=== PATIENT | female | born 1985 | race Caucasian/White ===

== ENCOUNTER 2024-06-27 11:20 | Emergency (ER) | payer OTHER ==
--- OUTSIDE RECORDS SUMMARY | 2024-06-27 11:24 | XMS REPORT | Continuity of Care Document ---
Author Name Unknown Address [address] [facility] [address] [place] [address] [facility] Address [address] [facility] 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 Name Role Phone Bruno Salas Primary Care Physi urszula MADISON RUIZ Attending Clinician UnavailRodrick Og Attending Clinician Lonny gross Doctor Unassigned, [place] Attending Clinician U Madison Quintanilla MD Attending Clinician [phone] Only, Adc Test Attending Clinician Unavailable Reyna Paez Attending Clinician [phone] CAROL MONGE Attending Clinician Unavailable Jim Deluna MD Attending Clinician [phone] JIM DELUNA Attending Clinician Unavailable MADISON RUIZ Admitting Clinician UnavailRodrick Og Admitting Clinician BRUNO Mariee Admitting Clinician Unavailable Madison Ruiz MD Admitting Clinician [phone] Payers Payer Name Policy Type Policy Number Effective Date Expirati on Date Source [employer] CHOICE POS II [id number] 2018 00:00:00 Problems Condition Name Condition Details Condition Category Status Onset Date Resolution Date Last Treatment Date Treating Clinician Comments Source Abnormal mammogram Abnormal mammogram Disease Active 09-21 00:00: 00 Overview: Formattin g of this note might be different from the original. 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 Last Assessmen t & Plan: Pt to be referred to neurology for evaluatio n of MRI results, pt given patient education material discussin g diagnosis , all questions answered. Pt to RTC as needed. [facility] Allergies, Adverse Reactions, Alerts Allergy Name Allergy Type Status Severity Reaction(s) Onset Date Inactive Date Treating Clinician Comments Source No Known Drug Intolera nces DA Active U NONE 08-22 00:00: 00 [facility] NO KNOWN ALLERGIE S Drug Class Active [facility] Social History Social Habit Start Date Stop Date Quantity Comments Source [facility] Exposure to SARS-CoV-2 (event) 2020-09-19 00:00:00 2020-10-19 13:48:00 Not sure [facility] History of Social function 2020-10-05 00:00:00 2020-10-05 00:00:00 [facility] Tobacco use and exposure 2020-07-19 00:00:00 2020-07-19 00:00:00 Smokeless tobacco non-user [facility] Alcohol intake 2020-07-19 00:00:00 2020-07-19 00:00:00 Current drinker of alcohol (finding) [facility] Sex Assigned At 1985 00:00:00 1985 00:00:00 [facility] Smoking Status Start Date Stop Date Source Unknown if ever smoked [facility] Never smoked tobacco [facility] Medications Ordered Medication Name Filled Medication Name Start Date Stop Date Current Medication? Ordering Clinician Indication Dosage Frequency Signature (SIG) Comments Components Source MULTIVITAMI N ORAL 10-05 17:39: 08 Yes Take by mouth. [facility] Lactobacill us acidophilus (PROBIOTIC ORAL) 10-05 17:39: 08 Yes Take by mouth. [facility] ergocalcife rol, vitamin D2, (VITAMIN D ORAL) 10-05 17:39: 08 Yes Take by mouth. [facility] ZINC ORAL 10-05 17:39: 08 Yes Take by mouth. [facility] acetaminoph en (TYLENOL) tablet 650 mg 10-05 16:28: 55 Yes 650mg 650 mg, Oral, PRN, 1 dose, Starting 10/05/20 at 1128, Until Discontinu ed, Routine, Pain (scale 1-3), DSU Recovery [facility] traMADoL (ULTRAM) tablet 50 mg 10-05 16:28: 55 10-05 19:39 :10 No 50mg 50 mg, Oral, PRN, 1 dose, Starting 10/05/20 at 1128, Until 10/05/20 at 1439, Routine, Pain (scale 7-10), DSU Recovery [facility] ondansetron (ZOFRAN (PF)) injection 4 mg 10-05 16:28: 45 Yes 4mg 4 mg, Slow IV Push, PRN, 1 dose, Starting 10/05/20 at 1128, Until Discontinu ed, Routine, Nausea and Vomiting (N/V), PACU [facility] FENTanyl PF (SUBLIMAZE (PF)) injection 25 mcg 10-05 16:28: 45 10-05 19:39 :10 No 25ug 25 mcg, Slow IV Push, Q5MIN PRN, 4 doses, Starting 10/05/20 at 1128, Until 10/05/20 at 1439, Routine, Pain (scale 7-10), PACU [facility] bupivacaine (preserv free) 0.5% (SENSORCAIN E MPF) 0.5 % (5 mg/mL) 30 mL, NaCl 0.9% (NS) 30 mL 10-05 15:50: 00 Yes PRN, Starting Sun10/05/20 at 1050, Intra-op [facility] lactated ringers IV infusion 1,000 mL 10-05 13:15: 00 10-05 13:14 :00 No 1000mL at 42 mL/hr, 1,000 mL, IV Infusion, ONCE, 1 dose, Sun10/05/20 at 0815, Routine, DSU Pre-op [facility] MULTIVITAMI N ORAL 10-05 12:39: 08 Yes Take by mouth. [facility] traMADoL 50 mg tablet 10-05 00:00: 00 Yes [id number] 50mg Take 1 tablet by mouth every 6 (six) hours as needed for Pain (scale 4-6) or Pain (scale 7-10) for up to 7 doses. Indication s: acute pain [facility] MULTIVITAMI N ORAL 08-17 19:23: 30 Yes Take by mouth. [facility] Lactobacill us acidophilus (PROBIOTIC ORAL) 08-17 19:23: 30 Yes Take by mouth. [facility] ergocalcife rol, vitamin D2, (VITAMIN D ORAL) 08-17 19:23: 30 Yes Take by mouth. [facility] ZINC ORAL 08-17 19:23: 30 Yes Take by mouth. [facility] butalbital- acetaminoph en-caff 50-325-40 mg tablet 08-11 00:00: 00 Yes 1{tbl} Take 1-2 tablets by mouth. [facility] gadobenate dimeglumine (MULTIHANCE -15 mL) injection 0.2 mL/kg 08-03 18:45: 00 08-03 18:32 :00 No [id number] .2mL/kg 0.2 mL/kg, Intravenou s, ONCE, 1 dose, Sun08/03/20 at 1345, Routine [facility] ketoconazol e 2 % shampoo 07-22 00:00: 00 Yes SHAMPOO DAILY, LEAVE ON FOR 5-10 MINUTES, THEN RINSE. [facility] No known medications No Un jos[facility] No known medications No [facility] j[facility] No known medications No Un jos[facility] it[facility] No known medications No Un josé it[facility] Vital Signs Vital Name Observation Time Observation Value Comments S shanon Systolic blood pressure 2020-10-05 17:25:00 115 mm[Hg] [facility] Diastolic blood pressure 2020-10-05 17:25:00 72 mm[Hg] [facility] Heart rate 2020-10-05 17:25:00 84 /min Unive [facility] Respiratory rate 2020-10-05 17:25:00 18 /min [facility] Oxygen saturation in Arterial blood by Pulse oximetry 2020-10-05 17:25:00 100 /min [facility] Body temperature 2020-10-05 13:13:00 36.94 Aisha [facility] Body height 2020-09-24 18:59:00 157.5 cm [facility] Body weight 2020-09-24 18:59:00 58.9 kg [facility] BMI 2020-09-24 18:59:00 23.74 kg/m2 [facility] Systolic blood pressure 2020-10-05 16:20:00 106 mm[Hg] [facility] Diastolic blood pressure 2020-10-05 16:20:00 69 mm[Hg] [facility] Heart rate 2020-10-05 16:20:00 97 /min Unive [facility] Respiratory rate 2020-10-05 16:20:00 18 /min [facility] Oxygen saturation in Arterial blood by Pulse oximetry 2020-10-05 16:20:00 100 /min [facility] Body temperature 2020-10-05 13:13:00 36.94 Aisha [facility] Body height 2020-09-24 18:59:00 157.5 cm [facility] Body weight 2020-09-24 18:59:00 58.9 kg [facility] BMI 2020-09-24 18:59:00 23.74 kg/m2 [facility] Procedures Procedure Date / Time Performed Performing Clinician Source EXTERNAL PROVIDER RECORDS 2021-08-08 05:01:00 Doctor Unassigned, [place] [facility] FL TIME OR (NON-REPORTABLE) 2020-10-05 18:41:06 Madison Ruiz [facility] EXCISION LESION BREAST 2020-10-05 13:53:00 Charan Ruiz [facility] POCT TEST 2020-10-05 13:05:00 Abhinav Velásquez [facility] POCT TEST 2020-10-05 13:05:00 Abhinav Velásquez [facility] DAY SURGERY - ADC 2020-10-05 05:01:00 Doctor Megan ssigned, [place] [facility] ASSIGNMENT OF BENEFITS 2020-10-04 17:31:11 Docto r Unassigned, [place] [facility] DISCLOSURE AND CONSENT, MEDICAL AND SURGICAL PROCEDURES 2020-09-21 05:01:00 Doctor Unassigned, [place] [facility] DISCLOSURE AND CONSENT, MEDICAL AND SURGICAL PROCEDURES 2020-09-21 05:01:00 Doctor Unassigned, [place] [facility] MR BREAST BILATERAL W WO CONTRAST 2020-08-03 18:31:[address] [facility] BI ULTRASOUND BREAST COMPLETE BILATERAL 2020-07-27 17:20:[address] [facility] BI DIAGNOSTIC TOMOSYNTHESIS BILATERAL 2020-07-27 16:45:00 Mikie [facility] REFERRAL- REQUEST/RESPONSE 2020-07-13 05:01:00 Doctor Unassigned, [place] [facility] Encounters Start Date/Time End Date/Time Encounter Type Admission Type Attending Clinicians Care Facility Care Department Encounter ID Source 2021-02-27 21:24:30 Outpatient MADISON ASHLEY [facility] MIGDALIA [id number] [facility] 2022-10-09 13:27:00 2022-10-09 13:27:00 Outpatient Rodrick Roper [facility] [id number] [facility] 2022-04-17 10:22:00 2022-04-17 10:22:00 Outpatient Rodrick Roper [facility] RADI [id number] [facility] 2021-08-08 00:00:00 2021-08-08 00:00:00 Orders Only Doctor Unassigned, [place] [facility] 1.2840.114 350.1.13.10 4.2.7.2.686 [id number] [facility] 2020-10-19 13:45:00 2020-10-19 13:45:00 Outpatient R MADISON RUIZ [facility] [id number] [facility] 2020-10-05 07:57:00 2020-10-05 12:32:00 Hospital Encounter Madison Ruiz [facility] 1.840.114 350.1.13.10 4.2.7.2.686 [id number] [facility] 2020-10-05 09:25:00 2020-10-05 11:20:00 Surgery Madison Ruiz [facility] 1.2840.114 350.1.13.10 4.2.7.2.686 [id number] [facility] 2020-10-05 00:00:00 2020-10-05 00:00:00 Orders Only Doctor Unassigned, [place] [facility] 1.2840.114 350.1.13.10 4.2.7.2.686 [id number] [facility] 2020-10-04 12:30:23 2020-10-04 12:45:23 Laboratory Only Only, Adc Test Madison Ruiz [facility] 1.2840.114 350.1.13.10 4.2.7.2.686 [id number] [facility] 2020-10-04 12:15:00 2020-10-04 12:15:00 Outpatient MADISON ASHLEY [facility] [id number] [facility] 2020-10-04 00:00:00 2020-10-04 00:00:00 Orders Only Doctor Unassigned, [place] [facility] 1.2840.114 350.1.13.10 4.2.7.2.686 [id number] [facility] 2020-09-24 09:15:00 2020-09-24 09:15:00 [id number] 2020-09-23 00:00:00 2020-09-23 00:00:00 Telephone Reyna Conway [facility] 1..840.114 350.1.13.10 4.2.7.2.686 [id number] [facility] 2020-09-21 13:15:00 2020-09-21 13:15:00 [facility] [id number] [facility] 2020-08-24 16:00:00 2020-08-24 16:00:00 [facility] [id number] [facility] 2020-08-17 14:15:00 2020-08-17 14:15:00 [facility] [id number] [facility] 2020-08-13 13:20:00 2020-08-13 13:20:00 Outpatient CAROL PRITCHETT [facility] [id number] [facility] 2020-08-09 00:00:00 2020-08-09 00:00:00 Patient Secure Msg Doctor Unassigned, [place] [facility] 1.2.840.114 350.1.13.10 4.2.7.2.686 [id number] [facility] 2020-08-03 10:15:00 2020-08-03 23:59:00 Hospital Encounter Jim Deluna [facility] 1.2.840.114 350.1.13.10 4.2.7.2.686 [id number] [facility] 2020-08-03 00:00:00 2020-08-03 00:00:00 Outpatient R JIM DELUNA [facility] [id number] [facility] 2020-07-27 10:32:50 2020-07-27 23:59:00 Outpatient R JIM DELUNA [facility] [id number] [facility] 2020-07-27 10:32:50 2020-07-27 23:59:00 Hospital Encounter Jim Deluna [facility] 1.2840.114 350.1.13.10 4.2.7.2.686 [id number] [facility] 2020-07-27 10:31:53 2020-07-27 10:31:53 Hospital Encounter Mikie Jim [facility] 1.2840.114 350.1.13.10 4.2.7.2.686 [id number] [facility] 2020-07-19 14:45:00 2020-07-19 14:45:00 Outpatient R JIM DELUNA [facility] [id number] [facility] 2020-07-19 00:00:00 2020-07-19 00:00:00 Letter (Out) Doctor Unassigned, [place] [facility] 1.2840.114 350.1.13.10 4.2.7.2.686 [id number] [facility] 2020-07-13 00:00:00 2020-07-13 00:00:00 Orders Only Doctor Unassigned, [place] [facility] 1.2840.114 350.1.13.10 4.2.7.2.686 [id number] [facility] Results Test Description Test Time Test Comments Results Resul t Comments Source - DUP AB/PEL/SC COMP 2022-03-30 9 12:00:00 [facility]: GIULIANO CONLEY : 1985 Sex: F Name: GIULIANO CONLEY [facility] : 1985 Age/S: 36 / F [address] Unit #: [id number] Loc: [place] [address] Phys: Rodrick Jiménez MD Acct: [id number] Dis Date: Status: REG CLI PHONE #: [phone] Exam Date: 04/17/2022 1127 FAX #: Reason: OVARIAN MASS EXAMS: CPT: [id number] DUP AB/PEL/SC COMP 56377 PELVIC ULTRASOUND CLINICAL HISTORY: OVARIAN MASS RIGHT COMPARISON: Pelvic ultrasound dated March 20, 2011 TECHNIQUE: Transvaginal and transabdominal imaging of the pelvis was performed utilizing grayscale, color Doppler, and spectral waveform analysis. Uterus: The retroverted uterus measures 9.3 x 4.5 x 6.3 cm in size. No uterine fibroid is identified. Endometrial stripe: The endometrial stripe measures 1.1 cm in thickness. No endometrial fluid is seen. Right ovary: The right ovary measures 4.7 x 2.2 x 2.9 cm. Spectral and color Doppler of the right ovary demonstrates normal arterial and venous blood flow. Several small ovarian follicles are noted which measure less than 1 cm in size. Left ovary: The left ovary measures 2.8 x 1.5 x 2.2 cm. Spectral and color Doppler of the left ovary demonstrates normal arterial and venous blood flow. Several small ovarian follicles are present which measure less than 1 cm in size. An additional simple 1.8 cm paraovarian cyst is also seen. Free fluid: Trace free fluid is noted in the pelvic cul-de-sac. IMPRESSION: 1. Small bilateral ovarian follicles and a small left paraovarian cyst. 2. No suspicious ovarian mass is detected. 3. Trace pelvic free fluid, likely physiologic. LOCATION: R16 at 1200 Reported and signed by: Lucho Navas M.D. PAGE 1 Signed Report (CONTINUED) Name: GIULIANO CONLEY [facility] : 1985 Age/S: 36 / F [address] Unit #: [id number] Loc: [place] [address] Phys: Rodrick Jiménez MD Acct: [id number] Dis Date: Status: REG CLI PHONE #: [phone] Exam Date: 04/17/2022 1127 FAX #: Reason: OVARIAN MASS EXAMS: CPT: [id number] DUP AB/PEL/SC COMP 91480 (Continued) CC: Rodrick Mckinnon MD Technologist: Marissa Clarke [facility] Date/Time: 04/17/2022 (1200) [email or web address] PAGE 2 Signed Report Name: YAELGIULIANO DENNIS DIVINE [place] : 1985 Age/S: 36 / F [address] Unit #: [id number] Loc: [place] [address] Phys: Rodrick Jiménez MD Acct: [id number] Dis Date: Status: REG CLI PHONE #: [phone] Exam Date: 04/17/2022 1127 FAX #: Reason: OVARIAN MASS EXAMS: CPT: [id number] DUP AB/PEL/SC COMP 77020 (Continued) Orig Print D/T: S: 04/17/2022 (1203) Probe: PAGE 3 Signed Report - US TRANSVAGINAL NON OB 2022-03-30 9 12:00:00 [facility] AZLEName: GIULIANO CONLEY : 1985 Sex: F Name: GIULIANO CONLEY [facility] : 1985 Age/S: 36 / F [address] [place] Unit #: [id number] Loc: [place] [address] Phys: Rodrick Jiménez MD Acct: [id number] Dis Date: Status: REG CLI PHONE #: [phone] Exam Date: 04/17/2022 1127 FAX #: Reason: OVARIAN MASS RIGHT EXAMS: CPT: [id number] [place] [address] PELVIC ULTRASOUND CLINICAL HISTORY: OVARIAN MASS RIGHT COMPARISON: Pelvic ultrasound dated March 20, 2011 TECHNIQUE: Transvaginal and transabdominal imaging of the pelvis was performed utilizing grayscale, color Doppler, and spectral waveform analysis. Uterus: The retroverted uterus measures 9.3 x 4.5 x 6.3 cm in size. No uterine fibroid is identified. Endometrial stripe: The endometrial stripe measures 1.1 cm in thickness. No endometrial fluid is seen. Right ovary: The right ovary measures 4.7 x 2.2 x 2.9 cm. Spectral and color Doppler of the right ovary demonstrates normal arterial and venous blood flow. Several small ovarian follicles are noted which measure less than 1 cm in size. Left ovary: The left ovary measures 2.8 x 1.5 x 2.2 cm. Spectral and color Doppler of the left ovary demonstrates normal arterial and venous blood flow. Several small ovarian follicles are present which measure less than 1 cm in size. An additional simple 1.8 cm paraovarian cyst is also seen. Free fluid: Trace free fluid is noted in the pelvic cul-de-sac. IMPRESSION: 1. Small bilateral ovarian follicles and a small left paraovarian cyst. 2. No suspicious ovarian mass is detected. 3. Trace pelvic free fluid, likely physiologic. LOCATION: R16 at 1200 Reported and signed by: Lucho Navas M.D. PAGE 1 Signed Report (CONTINUED) Name: CHRISS CONLEYREY JEANNIE [facility] : 1985 Age/S: 36 / F [address] Unit #: [id number] Loc: [place] [address] Phys: Rodrick Jiménez MD Acct: [id number] Dis Date: Status: REG CLI PHONE #: [phone] Exam Date: 04/17/2022 1127 FAX #: Reason: OVARIAN MASS RIGHT EXAMS: CPT: [id number] [place] [address] (Continued) CC: Rodrick Mckinnon MD Technologist: Marissa Clarke [facility] Date/Time: 04/17/2022 (1200) [email or web address] PAGE 2 Signed Report Name: GIULIANO CONLEY [facility] : 1985 Age/S: 36 / F [address] Unit #: [id number] Loc: [place] [address] Phys: Rodrick Jiménez MD Acct: [id number] Dis Date: Status: REG CLI PHONE #: [phone] Exam Date: 04/17/2022 1127 FAX #: Reason: OVARIAN MASS RIGHT EXAMS: CPT: [id number] [place] [address] (Continued) Orig Print D/T: S: 04/17/2022 (1203) Probe: [id number] PAGE 3 Signed Report - US PELVIC COMPLETE 2022-03-30 9 12:00:00 [facility] AZLEName: CHRISS CONLEYREY JEANNIE : 1985 Sex: F Name: GIULIANO CONLEY [place] : 1985 Age/S: 36 / F [address] [address] Unit #: [id number] Loc: [place] [address] Phys: Rodrick Jiménez MD Acct: [id number] Dis Date: Status: REG CLI PHONE #: [phone] Exam Date: 04/17/2022 1126 FAX #: Reason: OVARIAS MASS RIGHT EXAMS: CPT: [id number] US PELVIC COMPLETE 98741 PELVIC ULTRASOUND CLINICAL HISTORY: OVARIAN MASS RIGHT COMPARISON: Pelvic ultrasound dated March 20, 2011 TECHNIQUE: Transvaginal and transabdominal imaging of the pelvis was performed utilizing grayscale, color Doppler, and spectral waveform analysis. Uterus: The retroverted uterus measures 9.3 x 4.5 x 6.3 cm in size. No uterine fibroid is identified. Endometrial stripe: The endometrial stripe measures 1.1 cm in thickness. No endometrial fluid is seen. Right ovary: The right ovary measures 4.7 x 2.2 x 2.9 cm. Spectral and color Doppler of the right ovary demonstrates normal arterial and venous blood flow. Several small ovarian follicles are noted which measure less than 1 cm in size. Left ovary: The left ovary measures 2.8 x 1.5 x 2.2 cm. Spectral and color Doppler of the left ovary demonstrates normal arterial and venous blood flow. Several small ovarian follicles are present which measure less than 1 cm in size. An additional simple 1.8 cm paraovarian cyst is also seen. Free fluid: Trace free fluid is noted in the pelvic cul-de-sac. IMPRESSION: 1. Small bilateral ovarian follicles and a small left paraovarian cyst. 2. No suspicious ovarian mass is detected. 3. Trace pelvic free fluid, likely physiologic. LOCATION: R16 at 1200 Reported and signed by: Lucho Navas M.D. PAGE 1 Signed Report (CONTINUED) Name: GIULIANO CONLEYELLE [facility] [place] : 1985 Age/S: 36 / F [address] [address] [place] Unit #: [id number] Loc: [place] [address] Phys: Rodrick Jiménez MD Acct: [id number] Dis Date: Status: REG CLI PHONE #: [phone] Exam Date: 04/17/2022 1126 FAX #: Reason: OVARIAS MASS RIGHT EXAMS: CPT: [id number] US PELVIC COMPLETE 48625 (Continued) CC: Rodrick Mckinnon MD Technologist: Marissa Clarke [facility] Date/Time: 04/17/2022 (1200) [email or web address] PAGE 2 Signed Report Name: GIULIANO CONLEY [place] : 1985 Age/S: 36 / F [address] [address] Unit #: [id number] Loc: [place] [address] Phys: Rodrick Jiménez MD Acct: [id number] Dis Date: Status: REG CLI PHONE #: [phone] Exam Date: 04/17/2022 1126 FAX #: Reason: OVARIAS MASS RIGHT EXAMS: CPT: [id number] US PELVIC COMPLETE 77310 (Continued) Orig Print D/T: S: 04/17/2022 (1203) Probe: PAGE 3 Signed Report [place] TIME OR (NON-REPORTABLE) 8 18:41:11 These images do not require a Radiology diagnostic report. [id number] 13:05:00* Test Item Value Reference Range Interpretation Comme nts POCT PREG (test code = 1605) Negative On board controls acceptable with C Line (test code = 3574) Yes POCT PREG LOT # (test code = 3575) [id number] POCT PREG TEST DATE ( test code = 3576) [facility]02-27 [facility] [id number] 21:38:30Examination:MR BREAST BILATERAL W WO CONTRAST History:Patient is 34 year old and is seen for: ?Left: There is a 5 mm focal asymmetry in the retroareolar left breast; best seen on LCC image 28 of 55 and LSMLO image 13 of 46. Mild ductal ectasia is noted in the subareolar left breast, however, no intraductal mass is appreciated. The patient reports a history of spontaneous unilateral clear/orange nipple discharge, . ? Comparisons: 07/27/2020 BI DIAGNOSTIC TOMOSYNTHESIS BILATERAL and 07/27/2020 BIULTRASOUND BREAST COMPLETE BILATERAL Technique: Axial 3-D images with and without fat saturation; axial T2 fat saturated images; dynamic axial 3-D T1 images with fat saturation post gadolinium and sagittal 3-D T1 fat saturated images post gadolinium of both left and right breasts. Dynamic enhancement images were reviewed, and time enhancement curves were generated utilizing [employer] ([employer]) software. The MRI kinetic data including peak enhancement values, wash out percentages, and wash out curves were processed by physician at independent [employer] workstation. The post processing is medically necessary to comprehensively evaluate the MRI to diagnose breast cancer. Findings:The breasts have heterogeneous fibroglandular tissue. The background parenchymal enhancement is moderate and symmetric. RightThere is no evidence of suspicious masses, abnormal enhancement, or other abnormal findings in the right breast. LeftCorresponding to focal asymmetry seen on mammogram is normal breast parenchyma. There is no evidence of suspicious masses, abnormal enhancement, or other abnormal findings in the left breast. There is no lymphadenopathy. Impression:There is no MR evidence of malignancy. The patient reports a history of spontaneous unilateral clear/orange nipple discharge, so surgical consultation for a detail clinical exam is recommended for further evaluation. Recommendation:Clinical follow-up is also recommended and further management of clinical findings should be based on the results of clinical evaluation.Follow-up at age 40 or based on current ACR guidelines - Bilateral BI-RADS Category: Left 2 - BenignRight 1 - Negative I, Alexandria Mojica MD ?personally reviewed the study and agree with the resident's/fellow's report.[facility] ULTRASOUND BREAST COMPLETE [id number] 19:34:33Examination:BI DIAGNOSTIC TOMOSYNTHESIS BILATERALBI ULTRASOUND BREAST COMPLETE BILATERAL History:Patient is 34 year old and is seen for: ?[place] discharge and pain, possible mass palpated or fullness. Computer-aided detection (CAD) utilized. Comparisons : None available Findings:The breasts are heterogeneously dense, which may obscure small masses. LeftBI DIAGNOSTIC TOMOSYNTHESIS BILATERALThere is a 5 mm focal asymmetry seen in the retroareolar region of the left breast. This is best seen on LCC image 28 of 55 and LSMLO image 13 of 46. BI ULTRASOUND BREAST COMPLETE BILATERALSurvey ultrasound of the left breast and axilla was performed. Mild ductal ectasia is noted in the left subareolar breast, however, no intraductal mass is appreciated. Survey ultrasound of the left breast and axilla is unremarkable. RightBI DIAGNOSTIC TOMOSYNTHESIS BILATERALThere is no evidence of suspicious masses, calcifications, or other abnormal findings in the right breast. BI ULTRASOUND BREAST COMPLETE BILATERALSurvey ultrasound of the right breast and axilla was performed. Subareolar ultrasound of the right breast is unremarkable. A lobule of normal-appearing breast tissue is noted in the upper outer quadrant on real-time imaging. Survey ultrasound of the right breast and axilla is unremarkable. Impression: Left: There is a 5 mm focal asymmetry in the retroareolar left breast; best seen on LCC image 28 of 55 and LSMLO image 13 of 46. Mild ductal ectasia is noted in the subareolar left breast, however, no intraductal mass is appreciated. The patient reports a history of spontaneous unilateral clear/orange nipple discharge, so bilateral contrasted breast MRI is recommended (this MRI should be performed on day 7-10 of the menstrual cycle) to exclude an underlying abnormality. BI-RADS 0. Need additional imaging. Right: There is no evidence of malignancy. These findings and recommendations were d iscussed in detail with the patient at the time of this exam. Recommendation:MRI - BilateralAnnual mammographic follow-up - Right BI-RADS Category: Left: 0 - Incomplete: Needs Additional Imaging EvaluationRight: 1 - NegativeOverall: 0 - Incomplete: Needs Additional Imaging EvaluationPalestine Regional Medical CenterBI DIAGNOSTIC TOMOSYNTHESIS [id number] 19:34:28Examination:BI DIAGNOSTIC TOMOSYNTHESIS BILATERALBI ULTRASOUND BREAST COMPLETE BILATERAL History:Patient is 34 year old and is seen for: ?[place] discharge and pain, possible mass palpated or fullness. Computer-aided detection (CAD) utilized. Comparisons : None available Findings:The breasts are heterogeneously dense, which may obscure small masses. LeftBI DIAGNOSTIC TOMOSYNTHESIS BILATERALThere is a 5 mm focal asymmetry seen in the retroareolar region of the left breast. This is best seen on LCC image 28 of 55 and LSMLO image 13 of 46. BI ULTRASOUND BREAST COMPLETE BILATERALSurvey ultrasound of the left breast and axilla was performed. Mild ductal ectasia is noted in the left subareolar breast, however, no intraductal mass is appreciated. Survey ultrasound of the left breast and axilla isunremarkable. RightBI DIAGNOSTIC TOMOSYNTHESIS BILATERALThere is no evidence of suspicious masses, calcifications, or other abnormal findings in the right breast. BI ULTRASOUND BREAST COMPLETE BILATERALSurvey ultrasound of the right breast and axilla was performed. Subareolar ultrasound of the right breast is unremarkable. A lobule of normal-appearing breast tissue is noted in the upper outer quadrant on real-time imaging. Survey ultrasound of the right breast and axilla is unremarkable. Impression: Left: There is a 5 mm focal asymmetry in the retroareolar left breast; best seen on LCC image 28 of 55 and LSMLO image 13 of 46. Mild ductal ectasia is noted in the subareolar left breast, however, no intraductal mass is appreciated. The patient reports a history of spontaneous unilateral clear/orange nipple discharge, so bilateral contrasted breast MRI is recommended (this MRI should be performed on day 7-10 of the menstrual cycle) to exclude an underlying abnormality. BI-RADS 0. Need additional imaging. Right: There is no evidence of malignancy. These findings and recommendations were d iscussed in detail with the patient at the time of this exam. Recommendation:MRI - BilateralAnnual mammographic follow-up - Right BI-RADS Category: Left: 0 - Incomplete: Needs Additional Imaging EvaluationRight: 1 - NegativeOverall: 0 - Incomplete: Needs Additional Imaging EvaluationUnBaylor Scott [facility] [place]
[2024-06-27] MEDS ORDERED: ASPIRIN 81 MG CHEWABLE TABLET ONE (11:37)
[2024-06-27] MEDS ORDERED: FAMOTIDINE 20 MG/2 ML VIAL IV ONE (11:37)
[2024-06-27 11:48] LABS: Absolute Basophils 0.1 K/uL (0-0.5); Absolute Eosinophils 0.1 K/uL (0-0.5); Absolute Lymphocytes (CBC) 2.2 K/uL (0.7-4.9); Absolute Monocytes 0.5 K/uL (0.1-1.3); Absolute Neutrophil 2.6 K/uL (1.8-8.0); Basophils % 1.2 % (0-1.3); Eosinophils % 1.8 % (0-4.4); Hematocrit 38.9 % (36.0-45.0); Hemoglobin 13.5 g/dL (12.0-15.0); Lymphocytes % 40.6 % (15.3-44.8); MCH 31.9 pg (27.0-35.0); MCHC 34.8 g/dL (32.0-36.0); MCV 91.7 fL (80-100); MPV 7.8 fL (7.6-11.3); Monocytes % 9.3 % (3.3-12.3); Neutrophils % 47.1 % (41.7-73.7); Platelets 377 thou/uL (152-406); RBC Red Blood Cell Count 4.24 M/uL (3.86-4.86); Red Cell Distribution Width 12.7 % (12.1-15.2)
--- NOTE | 2024-06-27 11:50 | RAD REPORT ---
Procedure: Chest Single View HISTORY: Chest pain COMPARISON: 2016 FINDINGS: The lungs appear clear of acute infiltrate. No significant pleural effusion noted. The heart is normal size. IMPRESSION: No acute abnormality is displayed.
[2024-06-27 11:55] LABS: PT Prothrombin Time 12.4 SECONDS (10.0-13.0); Protime INR 1.09
[2024-06-27 12:07] LABS: Specific Gravity 1.006 (1.005-1.030); Sqamous Epithelial <5 /HPF (None Seen); Urine Bacteria None Seen /HPF (<20); Urine Bilirubin NEGATIVE (Negative); Urine Blood 3+ (Negative); Urine Clarity Clear (Clear); Urine Color Colorless (Yellow); Urine Culture Reflex Order NOT NEEDED; Urine Glucose NEGATIVE (Negative); Urine Ketones TRACE (Negative); Urine Microscopic Reflex YN ORDER UMIC; Urine Nitrite NEGATIVE (Negative); Urine Protein NEGATIVE (Negative); Urine RBC <5 /HPF (None Seen); Urine Urobilinogen Normal (Normal); Urine WBC <5 /HPF (<5); Urine pH 5.5 (5.0-7.0)
[2024-06-27 12:14] LABS: ALT/SGPT 26 U/L (13-56); AST/SGOT 20 U/L (15-37); Albumin 3.7 g/dL (3.4-5.0); Albumin/Globulin Ratio 1.1 (1.1-1.8); Alkaline Phosphatase 63 U/L (45-117); Anion Gap 9.9 mEq/L (5.0-15.0); BUN Blood Urea Nitrogen 15 mg/dL (7-18); Bicarbonate 26 mEq/L (21-32); Bilirubin Total 0.4 mg/dL (0.2-1.0); Globulin 3.4 g/dL (2.3-3.5); Glomerular Filtration Rate 93 ml/min (=/>90); Glucose Level 97 mg/dL (74-106); Lipase 44 U/L (13-75); Magnesium 2.4 mg/dL (1.6-2.4); NT PRO-BNP 34 pg/mL (<125); Potassium 3.9 mEq/L (3.5-5.1); Protein, Total 7.1 g/dL (6.4-8.2); Sodium Level 135 mEq/L (136-145)
[2024-06-27 12:18] LABS: Bilirubin Direct < 0.2 mg/dL (0-0.2); Bilirubin Indirect, Calculated 0.2 mg/dL (0.2-0.8); Troponin High Sensitivity < 3.0 pg/mL (<58.9)
--- NOTE | 2024-06-27 13:45 | ER ---
Nurse's Notes [facility] Name: Kisha Kinsey Age: 38 yrs Sex: Female : 1985 Arrival Date: 06/27/2024 Time: 11:20 Bed 3 Private MD: Diagnosis: Syncope Near;Palpitations;Chest pain, unspecified Presentation: 06/27 11:34 Chief complaint: Patient states: Was walking and started having an episode of dizziness cm10 and chest pain. pt states that the pain is to the left side of her chest and radiates down left arm. pt describes the pain as a pressure and stabbing pain. Pt also reports tingling to left arm. Coronavirus screen: Client denies travel out of the [place] in the last 14 days. Ebola Screen: Patient denies travel to an Ebola-affected area in the 21 days before illness onset. Initial Sepsis Screen: Does the patient meet any 2 criteria? HR > 90 bpm. Does the patient have a suspected source of infection? No. Patient's initial sepsis screen is negative. Risk Assessment: Do you want to hurt yourself or someone else? Patient reports no desire to harm self or others. Onset of symptoms was June 27, 2024. 11:34 Method Of Arrival: Ambulatory cm10 11:34 Acuity: ALEXIS 2 cm10 Triage Assessment: 11:36 General: Appears in no apparent distress. comfortable, Behavior is calm, cooperative. cm10 Neuro: No deficits noted. Level of Consciousness is awake, alert, obeys commands, Oriented to person, place, time, situation, Appropriate for age Reports dizziness. Cardiovascular: Reports chest pain, Patient's skin is warm and dry. Chest pain is described as Pain is 3 out of 10 on a pain scale. quality is pressure, stabbing, is located in left radiates to left arm(s) back began 1 hour prior to arrival episodes are continuous. 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 - Infectious Disease History:: Denies. - Social history:: Smoking status: unknown. - Family history:: not pertinent. Screenin:47 [facility] ED Fall Risk Assessment (Adult) History of falling in the last 3 months, ll1 including since admission No falls in past 3 months (0 pts) Confusion or Disorientation No (0 pts) Intoxicated or Sedated No (0 pts) Impaired Gait No (0 pts) Mobility Assist Device Used No (0 pt) Altered Elimination No (0 pt) Score/Fall Risk Level 0 - 2 = Low Risk Maintained a safe environment, Hourly rounding (assess needs \T\ fall precautionary measures) done. Abuse screen: Denies threats or abuse. Nutritional screening: No deficits noted. Tuberculosis screening: No symptoms or risk factors identified. Assessment: 11:46 Reassessment: No changes from previously documented assessment. Patient and/or family ll1 updated on plan of care and expected duration. Pain level reassessed. Patient is alert, oriented x 3, equal unlabored respirations, skin warm/dry/pink. 11:46 General: Appears in no apparent distress. Behavior is calm, cooperative, appropriate ll1 for age. Pain: Complains of pain in chest. Cardiovascular: Reports chest pain, palpitations, Chest pain is described as mild. 14:04 Pain: Pain does not radiate. Pain began 4 hours ago. ll1 Vital Signs: 11:34 BP 144 / 88; Pulse 98; Resp 12; Temp 98; Pulse Ox 100% ; Weight 57.61 kg; Height 5 ft. cm10 2 in. ; Pain 3/10; 13:00 BP 117 / 83; Pulse 77; Resp 15; Pulse Ox 100% on R/A; ll1 13:55 BP 126 / 85; Pulse 77; Resp 16; Pulse Ox 100% ; ll1 11:34 Body Mass Index 23.23 (57.61 kg, 157.48 cm) cm10 11:34 Pain Scale: Adult cm10 ED Course: 11:21 Patient arrived in ED. mr 11:22 Osman Bahena MD is Attending Physician. [facility] 11:34 Zully Lyn, SANGITA is Primary Nurse. ll1 11:35 Triage completed. cm10 11:36 Arm band placed on right wrist. Patient placed in an exam room, on a stretcher, on cm10 satellite project site monitor, on pulse oximetry. EKG completed in triage. Results shown to MD. 11:41 Initial lab(s) drawn, by me, sent to lab. Inserted saline lock: 20 gauge in right em1 antecubital area, using aseptic technique. Blood collected. Flushed with 10 mL NS. 11:42 TSH Sent. em1 11:42 Lipase Sent. em1 11:42 Basic Metabolic Panel Sent. em1 11:42 CBC with Diff Sent. em1 11:42 LFT's Sent. em1 11:42 Magnesium Sent. em1 11:42 PT-INR Sent. em1 11:42 NT PRO-BNP Sent. em1 11:42 Troponin HS Sent. em1 11:45 XRAY Chest (1 view) In Process Unspecified. EDMS 11:47 No provider procedures requiring assistance completed. Patient maintains SpO2 ll1 saturation greater than 95% on room air. 12:00 Patient has correct armband on for positive identification. Provided Education on: ER ll1 procedures and process. Client placed on continuous cardiac and pulse oximetry monitoring. NIBP monitoring applied. equipment monitor phototypesetting on. 13:44 Anastacio Cortes MD is Referral Physician. [facility] 13:57 IV discontinued, intact, bleeding controlled, No redness/swelling at site. Pressure ll1 dressing applied. Administered Medications: 11:46 Drug: Aspirin PO Chewable Tablet 162 mg PO once Route: PO; ll1 14:05 Follow up: Response: No adverse reaction ll1 11:46 Drug: Famotidine IVP 20 mg IVP once; dilute with 10 mL 0.9% NaCl; give over 2 minutes ll1 Route: IVP; Site: right antecubital; 14:04 Follow up: Response: No adverse reaction ll1 Medication: 11:47 VIS not applicable for this client. ll1 Outcome: 13:45 Discharge ordered by . [facility] 13:57 Patient left the ED. ll1 13:57 Discharged to ll1 13:57 Discharged to home ambulatory, 13:57 Condition: stable 13:57 Discharge instructions given to patient, family, Instructed on discharge instructions, follow up and referral plans. Demonstrated understanding of instructions, follow-up care, Signatures: Dispatcher [employer] EDMS Osman Bahena MD MD cha Rivera, Mary, Reg Reg mr Marin Malhotra em1 Zully Lyn RN RN ll1 Elvia Malhotra RN RN cm10
--- NOTE | 2024-06-27 13:46 | EDPHYS ---
Physician Documentation [facility] Name: Kisha Kinsey Age: 38 yrs Sex: Female : 1985 Arrival Date: 06/27/2024 Time: 11:20 Bed 3 Private MD: ED Physician Osman Bahena HPI: 06/27 13:38 This 38 yrs old Female presents to ER via Ambulatory with complaints of Chest marilynn Pain, Palpitations. 13:38 The patient or guardian reports chest pain that is located primarily in the anterior marilynn chest wall, left. The pain does not radiate. Associated signs and symptoms: The patient has no apparent associated signs or symptoms. The chest pain is described as sharp. Duration: The patient or guardian reports multiple episodes, that have now resolved, with no pattern. Modifying factors: The symptoms are alleviated by nothing. the symptoms are aggravated by nothing. Severity of pain: At its worst the pain was mild in the emergency department the pain is unchanged. The patient has not experienced similar symptoms in the past. 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 - Infectious Disease History:: Denies. - Social history:: Smoking status: unknown. - Family history:: not pertinent. ROS: 13:38 Constitutional: Negative for fever, chills, and weight loss, Eyes: Negative for injury, marilynn pain, redness, and discharge, ENT: Negative for injury, pain, and discharge, Neck: Negative for injury, pain, and swelling, Respiratory: Negative for shortness of breath, cough, wheezing, and pleuritic chest pain, Abdomen/GI: Negative for abdominal pain, nausea, vomiting, diarrhea, and constipation, Back: Negative for injury and pain, : Negative for injury, bleeding, discharge, and swelling, MS/Extremity: Negative for injury and deformity, Skin: Negative for injury, rash, and discoloration, Psych: Negative for depression, anxiety, suicide ideation, homicidal ideation, and hallucinations, Allergy/Immunology: Negative for hives, rash, and allergies, Endocrine: Negative for neck swelling, polydipsia, polyuria, polyphagia, and marked weight changes, Hematologic/Lymphatic: Negative for swollen nodes, abnormal bleeding, and unusual bruising, 13:38 Cardiovascular: Positive for chest pain, palpitations, 13:38 Neuro: Positive for near syncope, Exam: 13:38 Constitutional: This is a well developed, well nourished patient who is awake, alert, marilynn and in no acute distress. Head/Face: Normocephalic, atraumatic. Eyes: Pupils equal round and reactive to light, extra-ocular motions intact. Lids and lashes normal. Conjunctiva and sclera are non-icteric and not injected. Cornea within normal limits. Periorbital areas with no swelling, redness, or edema. ENT: Nares patent. No nasal discharge, no septal abnormalities noted. Tympanic membranes are normal and external auditory canals are clear. Oropharynx with no redness, swelling, or masses, exudates, or evidence of obstruction, uvula midline. Mucous membranes moist. Neck: Trachea midline, no thyromegaly or masses palpated, and no cervical lymphadenopathy. Supple, full range of motion without nuchal rigidity, or vertebral point tenderness. No Meningismus. Chest/axilla: Normal chest wall appearance and motion. Nontender with no deformity. No lesions are appreciated. Cardiovascular: Regular rate and rhythm with a normal S1 and S2. No gallops, murmurs, or rubs. Normal PMI, no JVD. No pulse deficits. Respiratory: Lungs have equal breath sounds bilaterally, clear to auscultation and percussion. No rales, rhonchi or wheezes noted. No increased work of breathing, no retractions or nasal flaring. Abdomen/GI: Soft, non-tender, with normal bowel sounds. No distension or tympany. No guarding or rebound. No evidence of tenderness throughout. Back: No spinal tenderness. No costovertebral tenderness. Full range of motion. Skin: Warm, dry with normal turgor. Normal color with no rashes, no lesions, and no evidence of cellulitis. MS/ Extremity: Pulses equal, no cyanosis. Neurovascular intact. Full, normal range of motion., bilateral aka Neuro: Awake and alert, GCS 15, oriented to person, place, time, and situation. Cranial nerves II-XII grossly intact. Motor strength 5/5 in all extremities. Sensory grossly intact. Cerebellar exam normal. Normal gait. Psych: Awake, alert, with orientation to person, place and time. Behavior, mood, and affect are within normal limits. 13:38 ECG was reviewed by the Attending Physician. 13:38 Musculoskeletal/extremity: DVT Exam: No signs of deep vein thrombosis. no pain, no swelling, no tenderness, negative Homans' sign noted on exam, no appreciated bluish discoloration, no erythema, no increased warmth, Vital Signs: 11:34 BP 144 / 88; Pulse 98; Resp 12; Temp 98; Pulse Ox 100% ; Weight 57.61 kg; Height 5 ft. cm10 2 in. ; Pain 3/10; 13:00 BP 117 / 83; Pulse 77; Resp 15; Pulse Ox 100% on R/A; ll1 13:55 BP 126 / 85; Pulse 77; Resp 16; Pulse Ox 100% ; ll1 11:34 Body Mass Index 23.23 (57.61 kg, 157.48 cm) cm10 11:34 Pain Scale: Adult cm10 MDM: 11:22 Medical Screening Exam initiated marilynn 13:41 Differential diagnosis: abnormal EKG, acute myocardial infarction, acute pericarditis, marilynn anxiety, cholecystitis, costochondritis, gastritis, pancreatitis, peptic ulcer disease, pneumonia, pulmonary embolus, stable angina, thoracic aortic disection, unstable angina. HEART Score: History: Slightly Suspicious (0), ECG: Normal (0), Age: < or = 45 years (0), Risk Factors: No Risk Factors Known (0), Troponin: < or = 1 x Normal Limit (0). SAILAJA Risk Score: TOTAL SCORE = 0. Data reviewed: vital signs, nurses notes, lab test result(s), EKG, radiologic studies, plain films. Consideration of Admission/Observation Escalation of care including admission/observation considered. I considered the following discharge prescriptions or medication management in the emergency department Medications were administered in the Emergency Department. See MAR. Independent interpretation of the following test(s) in the Emergency Department EKG: See my EKG interpretation above. Test considered but Not performed: Ultrasound NO 2 D ECHO. Historians other than the Patient: Spouse/Significant Other: WELL INFORMED. Care significantly affected by the following chronic conditions: NONE. Counseling: I had a detailed discussion with the patient and/or guardian regarding the historical points, exam findings, and any diagnostic results supporting the discharge/admit diagnosis, lab results, radiology results, the need for outpatient follow up, for definitive care, 06/27 11:23 Order name: Basic Metabolic Panel; Complete Time: 13: [facility] 06/27 11:23 Order name: CBC with Diff; Complete Time: 13: [facility] 06/27 11:23 Order name: LFT's; Complete Time: : [facility] 06/27 11:23 Order name: Magnesium; Complete Time: : [facility] 06/27 11:23 Order name: NT PRO-BNP; Complete Time: 13: [facility] 06/27 11:23 Order name: PT-INR; Complete Time: : [facility] 06/27 11:23 Order name: Troponin HS; Complete Time: : [facility] 06/27 11:23 Order name: Lipase; Complete Time: : [facility] 06/27 11:23 Order name: TSH; Complete Time: : [facility] 06/27 11:23 Order name: Urinalysis w/ reflexes; Complete Time: : [facility] 06/27 11:23 Order name: PREGU; Complete Time: : [facility] 06/27 11:55 Order name: D-Dimer; Complete Time: : [facility] 06/27 11:23 Order name: XRAY Chest (1 view); Complete Time: : [facility] 06/27 11:23 Order name: Cardiac monitoring; Complete Time: 11:34 [facility] 06/27 11:23 Order name: EKG - Nurse/Tech; Complete Time: 11:34 [facility] 06/27 11:23 Order name: IV Saline Lock; Complete Time: 11: [facility] 06/27 11:23 Order name: Labs collected and sent; Complete Time: 11: [facility] 06/27 11:23 Order name: O2 Per Protocol; Complete Time: 11:34 [facility] 06/27 11:23 Order name: O2 Sat Monitoring; Complete Time: :34 [facility] EC:38 Rate is 91 beats/min. Rhythm is regular. QRS [place] is Normal. [place] interval is normal. QRS marilynn interval is normal. QT interval is normal. No Q waves. T waves are Normal. No ST changes noted. Clinical impression: Normal ECG and No evidence of ischemia. Interpreted by me. Reviewed by me. Administered Medications: 11:46 Drug: Aspirin PO Chewable Tablet 162 mg PO once Route: PO; ll1 14:05 Follow up: Response: No adverse reaction ll1 11:46 Drug: Famotidine IVP 20 mg IVP once; dilute with 10 mL 0.9% NaCl; give over 2 minutes ll1 Route: IVP; Site: right antecubital; 14:04 Follow up: Response: No adverse reaction ll1 Disposition Summary: 06/27/24 13:45 Discharge Ordered Notes: Location: Home marilynn Problem: new marilynn Symptoms: have improved marilynn Condition: Stable marilynn Diagnosis - Syncope Near marilynn - Palpitations marilynn - Chest pain, unspecified marilynn Followup: marilynn - With: Private Physician - When: 2 - 3 days - Reason: Recheck today's complaints, Continuance of care, Re-evaluation by your physician Followup: marilynn - With: Anastacio Cortes MD - When: 2 - 3 days - Reason: Recheck today's complaints, Re-evaluation by your physician Discharge Instructions: - Discharge Summary Sheet marilynn - Nonspecific Chest Pain, Adult marilynn - Near-Syncope marilynn - Palpitations marilynn - Near-Syncope, [id number] marilynn - Nonspecific Chest Pain, Adult, [id number] marilynn - Aspirin and Your Heart marilynn - Palpitations, [id number] marilynn Forms: - Medication Reconciliation Form marilynn - Antibiotic Education marilynn - Prescription Opioid Use marilynn - Patient Portal Instructions marilynn - Leadership Thank You Letter marilynn Signatures: Dispatcher [employer] EDMS Osman Bahena MD MD cha Lewis, Lynsay RN RN ll1 Elvia Malhotra RN RN cm10 Corrections: (The following items were deleted from the chart) 11:24 11:24 BASIC METABOLIC PANEL+C.LAB.BRZ ordered. EDMS EDMS 11:24 11:24 CBC+H.LAB.BRZ ordered. EDMS EDMS 11:24 11:24 HEPATIC FUNCTION+C.LAB.BRZ ordered. EDMS EDMS 11:24 11:24 MAGNESIUM+C.LAB.BRZ ordered. EDMS EDMS 11:24 11:24 PROBNP+C.LAB.BRZ ordered. EDMS EDMS 11:24 11:24 PROTIME (+INR)+COAG.LAB.BRZ ordered. EDMS EDMS 11:24 11:24 Troponin High Sensitivity+C.LAB.BRZ ordered. EDMS EDMS 11:24 11:24 LIPASE+C.LAB.BRZ ordered. EDMS EDMS 11:24 11:24 THYROID STIMULAT HORMONE+C.LAB.BRZ ordered. EDMS EDMS 11: 11:24 Urinalysis+U.LAB.BRZ ordered. EDMS EDMS 11:24 11:24 Test, Urine+UC.LAB.BRZ ordered. EDMS EDMS 11:24 11:24 Chest Single View+RAD.RAD.BRZ ordered. EDMS EDMS 11:55 11:55 D-DIMER+COAG.LAB.BRZ ordered. EDMS EDMS
[2024-06-27 14:38] VITALS: TEMP 98; O2SAT 100
[2024-06-27 14:42] VITALS: BP 117/83
== END 2024-06-27 13:57 | disposition home or self-care (01) ==
LOC: ER 11:20
DX: R07.9 Chest pain, unspecified (principal); R00.2 Palpitations; R55 Syncope and collapse
CPT/HCPCS: 36415; 71045; 80048; 80076; 81001; 81025; 83690; 83735; 83880; 84443; 84484; 85025; 85379; 85610; 96374; 99285